=== PATIENT | male | born 1965 | race Caucasian/White ===

== ENCOUNTER 2019-05-12 16:00 | Emergency (ER) | payer OTHER ==
[~2019-05-12] VITALS: Ht 167.6 cm; Wt 84.4 kg
[2019-05-12] MEDS ORDERED: EXFORGE HCT 101 EAC2 (16:14)
== END 2019-05-12 20:54 | disposition home or self-care (01) ==
LOC: ER 16:00
DX: R42 Dizziness and giddiness (principal)